=== PATIENT | male | born 1970 | race American Indian/Alaskan Native ===

== ENCOUNTER 2016-10-17 13:58 | Emergency (ER) | payer SELFPAY ==
--- NOTE | 2016-10-17 15:35 | Emergency Department Report ---
ED General Adult HPI - General Chief complaint: High BP Stated complaint: ELEVATED B/P Time Seen by Provider: 10/17/16 15:29 Source: patient Mode of arrival: Ambulatory Limitations: No Limitations - History of Present Illness Initial comments: PT states he ran out of his bp medication 3 days ago. PT has a list of home medication. PT is on amlodiine 5 mg, lisinopil/ hctz 20- 25 mg, and metoprolol 25 mg once a day PT has DOT physical tomorrow MD Complaint: medication refill -: Gradual Severity scale (0 -10): 0 Improves with: medication Associated Symptoms: denies: confusion, chest pain, loss of appetite, nausea/ vomiting, shortness of breath, syncope - Related Data Previous Rx's Medication Instructions Recorded Last Taken Type Lisinopril/Hydrochlorothiazide 1 tab PO QDAY #30 tab 10/17/16 Unknown Rx [Zestoretic 20-25 mg] Metoprolol [Lopressor TAB] 25 mg PO DAILY #30 tablet 10/17/16 Unknown Rx amLODIPine [Norvasc] 5 mg PO QHS #30 tab 10/17/16 Unknown Rx Allergies Allergy/AdvReac Type Severity Reaction Status Date / Time No Known Allergies Allergy Verified 08/12/14 11:24 ED Review of Systems ROS: Stated complaint: ELEVATED B/P Other details as noted in HPI Comment: All other systems reviewed and negative Constitutional: denies: fever Cardiovascular: denies: chest pain, palpitations, edema, syncope Gastrointestinal: denies: abdominal pain Neurological: denies: headache, abnormal gait ED Past Medical Hx - Past Medical History Hx Hypertension: Yes - Surgical History Past Surgical History?: No - Social History Smoking Status: Current Some Day Smoker Substance Use Type: None - Medications Home Medications: Home Medications Medication Instructions Recorded Confirmed Last Taken Type Lisinopril/Hydrochlorothiazide 1 tab PO QDAY #30 tab 10/17/16 Unknown Rx [Zestoretic 20-25 mg] Metoprolol [Lopressor TAB] 25 mg PO DAILY #30 tablet 10/17/16 Unknown Rx amLODIPine [Norvasc] 5 mg PO QHS #30 tab 10/17/16 Unknown Rx ED Physical Exam - General Limitations: No Limitations General appearance: alert, in no apparent distress - Head Head exam: Present: atraumatic, normocephalic, normal inspection - Eye Eye exam: Present: normal appearance. Absent: conjunctival injection - ENT ENT exam: Present: normal exam, normal external ear exam - Neck Neck exam: Present: normal inspection, full ROM - Respiratory Respiratory exam: Present: normal lung sounds bilaterally. Absent: respiratory distress - Cardiovascular Cardiovascular Exam: Present: regular rate, normal rhythm, normal heart sounds - GI/Abdominal GI/Abdominal exam: Present: soft. Absent: tenderness - Extremities Exam Extremities exam: Present: normal inspection - Back Exam Back exam: Present: normal inspection, full ROM ED Course Vital Signs 10/17/16 10/17/16 14:21 16:10 Temperature 98.6 F 98.6 F Pulse Rate 65 65 Respiratory 18 17 Rate Blood Pressure 150/109 142/96 [Right] O2 Sat by Pulse 97 98 Oximetry - Reevaluation(s) Reevaluation #1: 10/17/16 15:44 PT aware his bp medication will be prescribed. 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 ED Disposition Clinical Impression: Hypertension Qualifiers: Hypertension type: essential hypertension Qualified Code(s): I10 - Essential ( primary) hypertension Disposition: TO HOME OR SELFCARE Is pt being admited?: No Does the pt Need Aspirin: No Condition: Stable Instructions: Hypertension (ED) Additional Instructions: take your bp medication as prescribed follow up with PCP in 3-5 days for bp recheck Return to the ed for concerns Prescriptions: amLODIPine [Norvasc] 5 mg PO QHS #30 tab Lisinopril/Hydrochlorothiazide [Zestoretic 20-25 mg] 1 tab PO QDAY #30 tab Metoprolol [Lopressor TAB] 25 mg PO DAILY #30 tablet Referrals: [facility] [Outside] - 3-5 Days [facility] [Outside] - 3-5 Days LEANRDA BURRELL MD [Staff Physician] - 3-5 Days Forms: Work/School Release Form(ED) Time of Disposition: 15:47
[2016-10-17 16:20] VITALS: BP 142/96
== END 2016-10-17 16:10 | disposition home or self-care (01) ==
LOC: ED 13:58
DX: I10 Essential (primary) hypertension (principal); F17.210 Nicotine dependence, cigarettes, uncomplicated
CPT/HCPCS: 99282

== ENCOUNTER 2017-05-15 09:38 | Emergency (ER) | payer OTHER ==
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
[2017-05-15 17:51] VITALS: BP 132/87
== END 2017-05-15 17:51 | disposition home or self-care (01) ==
LOC: ED 09:38
DX: M54.5 Low back pain (principal); I10 Essential (primary) hypertension; F17.200 Nicotine dependence, unspecified, uncomplicated; F12.10 Cannabis abuse, uncomplicated
CPT/HCPCS: 99282

== ENCOUNTER 2017-10-31 14:45 | Emergency (ER) | payer SELFPAY ==
[2017-10-31] MEDS ORDERED: CATAPRES ONE (14:50)
[2017-10-31] MEDS ORDERED: CATAPRES PO ONE (14:58)
--- NOTE | 2017-10-31 18:08 | Emergency Department Report ---
ED Recheck HPI - General Chief Complaint: Medical Clearance Stated Complaint: HBP Time Seen by Provider: 10/31/17 17:19 Source: patient Mode of arrival: Ambulatory Limitations: No Limitations - History of Present Illness Initial Comments: This is a 46-year-old male nontoxic, well nourished in appearance, no acute signs of distress presents to the ED medication refill. Patient stated that he takes Lopressor 25 mg, amlodipine 5 mg and Zestoretic 25mg daily and baby aspirin but has not been taken for past week. Patient denies falling up with a primary care doctor. Patient is asymptomatic. He denies any chest pain, shortness of breath, headache, stiff neck, numbness, tingling, blurry vision, neck pain, bowel pain. Patient denies any drug allergies. Past medical history includes hypertension. MD Complaint: medication refill request Symptoms Since Prior Visit: no new symptoms Associated Symptoms: none. denies: fever, chills, chest pain, shortness of breath, rash, malaise, nasuea, abdominal pain - Related Data Previous Rx's Medication Instructions Recorded Last Taken Type Lisinopril/Hydrochlorothiazide 1 tab PO QDAY #30 tab 10/17/16 Unknown Rx [Zestoretic 20-25 mg] Metoprolol [Lopressor TAB] 25 mg PO DAILY #30 tablet 10/17/16 Unknown Rx amLODIPine [Norvasc] 5 mg PO QHS #30 tab 10/17/16 Unknown Rx Cyclobenzaprine [Flexeril] 10 mg PO TID PRN #15 tablet 05/15/17 Unknown Rx Ibuprofen [Motrin] 600 mg PO Q8H PRN #15 tablet 05/15/17 Unknown Rx Aspirin [Aspirin BABY CHEW TAB] 81 mg PO QDAY #30 tab.chew 10/31/17 Unknown Rx Lisinopril/Hydrochlorothiazide 1 tab PO QDAY #30 tab 10/31/17 Unknown Rx [Zestoretic 20-25 mg] Metoprolol [Lopressor] 25 mg PO DAILY #30 tablet 10/31/17 Unknown Rx amLODIPine [Norvasc] 5 mg PO QHS #30 tab 10/31/17 Unknown Rx Allergies Allergy/AdvReac Type Severity Reaction Status Date / Time No Known Allergies Allergy Verified 08/12/14 11:24 ED Review of Systems ROS: Stated complaint: HBP Other details as noted in HPI Constitutional: denies: chills, fever Eyes: denies: eye pain, eye discharge, vision change ENT: denies: ear pain, throat pain Respiratory: denies: cough, shortness of breath, wheezing Cardiovascular: denies: chest pain, palpitations Endocrine: no symptoms reported Gastrointestinal: denies: abdominal pain, nausea, diarrhea Genitourinary: denies: urgency, dysuria Musculoskeletal: denies: back pain, joint swelling, arthralgia Skin: denies: rash, lesions Neurological: denies: headache, weakness, paresthesias Psychiatric: denies: anxiety, depression Hematological/Lymphatic: denies: easy bleeding, easy bruising ED Past Medical Hx - Past Medical History Previous Medical History?: Yes Hx Hypertension: Yes - Surgical History Past Surgical History?: No - Social History Smoking Status: Never Smoker - Medications Home Medications: Home Medications Medication Instructions Recorded Confirmed Last Taken Type Lisinopril/Hydrochlorothiazide 1 tab PO QDAY #30 tab 10/17/16 Unknown Rx [Zestoretic 20-25 mg] Metoprolol [Lopressor TAB] 25 mg PO DAILY #30 tablet 10/17/16 Unknown Rx amLODIPine [Norvasc] 5 mg PO QHS #30 tab 10/17/16 Unknown Rx Cyclobenzaprine [Flexeril] 10 mg PO TID PRN #15 tablet 05/15/17 Unknown Rx Ibuprofen [Motrin] 600 mg PO Q8H PRN #15 tablet 05/15/17 Unknown Rx Aspirin [Aspirin BABY CHEW TAB] 81 mg PO QDAY #30 tab.chew 10/31/17 Unknown Rx Lisinopril/Hydrochlorothiazide 1 tab PO QDAY #30 tab 10/31/17 Unknown Rx [Zestoretic 20-25 mg] Metoprolol [Lopressor] 25 mg PO DAILY #30 tablet 10/31/17 Unknown Rx amLODIPine [Norvasc] 5 mg PO QHS #30 tab 10/31/17 Unknown Rx ED Physical Exam - General Limitations: No Limitations General appearance: alert, in no apparent distress - Head Head exam: Present: atraumatic, normocephalic - Eye Eye exam: Present: normal appearance - ENT ENT exam: Present: mucous membranes moist - Neck Neck exam: Present: normal inspection - Respiratory Respiratory exam: Present: normal lung sounds bilaterally. Absent: respiratory distress - Cardiovascular Cardiovascular Exam: Present: regular rate, normal rhythm. Absent: systolic murmur, diastolic murmur, rubs, gallop - GI/Abdominal GI/Abdominal exam: Present: soft, normal bowel sounds - Rectal Rectal exam: Present: deferred - Extremities Exam Extremities exam: Present: normal inspection - Back Exam Back exam: Present: normal inspection - Neurological Exam Neurological exam: Present: alert, oriented X3 - Psychiatric Psychiatric exam: Present: normal affect, normal mood - Skin Skin exam: Present: warm, dry, intact, normal color. Absent: rash ED Course Vital Signs 10/31/17 10/31/17 14:45 16:24 Temperature 98 F Pulse Rate 95 H Respiratory 16 Rate Blood Pressure 200/122 Blood Pressure 159/111 [Left] O2 Sat by Pulse 98 Oximetry - Reevaluation(s) Reevaluation #1: 10/31/17 18:13 Patient is speaking in full sentences with no signs of distress noted. ED Recheck MDM - Medical Decision Making 46-year-old male that presents with hypertension and medication refill. Patient is stable and was examined by me. Prior to my review patient received Catapres 0.2 mg which has decreased patient's blood pressure. Patient will be refill his medications listed on his phone (Norvasc 5mg, Lopressor 25mg, and Zestoretic 20-25mg daily) and aspirin 81 mg. Patient is asymptomatic. Patient was referred to Follow-up with a primary care doctor in 3-5 days or if symptoms worsen and continue return to emergency room as soon as possible. At time of discharge, the patient does not seem toxic or ill in appearance. No acute signs of distress noted. Patient agrees to discharge treatment plan of care. No further questions noted by the patient. Critical care attestation.: If time is entered above; I have spent that time in minutes in the direct care of this critically ill patient, excluding procedure time. ED Disposition Clinical Impression: Medication refill Hypertension Qualifiers: Hypertension type: unspecified Qualified Code(s): I10 - Essential (primary) hypertension Disposition: - TO HOME OR SELFCARE Is pt being admited?: No Does the pt Need Aspirin: No Condition: Stable Instructions: Hypertension (ED) Additional Instructions: Follow-up with a primary care doctor in 3-5 days or if symptoms worsen and continue return to emergency room as soon as possible. Keep a daily diary of her blood pressure and presented to primary care doctor. Prescriptions: amLODIPine [Norvasc] 5 mg PO QHS #30 tab Aspirin [Aspirin BABY CHEW TAB] 81 mg PO QDAY #30 tab.chew Lisinopril/Hydrochlorothiazide [Zestoretic 20-25 mg] 1 tab PO QDAY #30 tab Metoprolol [Lopressor] 25 mg PO DAILY #30 tablet Referrals: PRIMARY CAREMD [Primary Care Provider] - 3-5 Days WALESKA NAVA MD [Staff Physician] - 3-5 Days [facility] [Outside] - 3-5 Days [facility] [Outside] - 3-5 Days Forms: Work/School Release Form(ED)
[2017-10-31 18:51] VITALS: BP 158/102
== END 2017-10-31 18:50 | disposition home or self-care (01) ==
LOC: ED 14:45
DX: I10 Essential (primary) hypertension (principal); Z76.0 Encounter for issue of repeat prescription
CPT/HCPCS: 99282

== ENCOUNTER 2017-12-13 13:42 | Emergency (ER) | payer SELFPAY ==
[2017-12-13] MEDS ORDERED: LOPRESSOR ONE (13:58)
[2017-12-13] MEDS ORDERED: NORVASC ONE (13:58)
[2017-12-13] MEDS ORDERED: NORVASC PO ONE (14:00)
[2017-12-13] MEDS ORDERED: LOPRESSOR PO ONE (14:01)
--- NOTE | 2017-12-13 15:03 | Emergency Department Report ---
ED General Adult HPI - General Chief complaint: High BP Stated complaint: HYPERTENSION Time Seen by Provider: 12/13/17 14:53 Source: patient Mode of arrival: Ambulatory Limitations: No Limitations - History of Present Illness Initial comments: Patient is 47 years old male with history of hypertension on Norvasc 5 mg and Lopressor 25 mg. Patient stated that he is out of his medication presented to the ER with a blood pressure of 171/114. Patient denied any chest pain, shortness of breath, weakness, numbness, tingling sensation, nausea or vomiting. - Related Data Previous Rx's Medication Instructions Recorded Last Taken Type Lisinopril/Hydrochlorothiazide 1 tab PO QDAY #30 tab 10/17/16 Unknown Rx [Zestoretic 20-25 mg] Metoprolol [Lopressor TAB] 25 mg PO DAILY #30 tablet 10/17/16 Unknown Rx amLODIPine [Norvasc] 5 mg PO QHS #30 tab 10/17/16 Unknown Rx Cyclobenzaprine [Flexeril] 10 mg PO TID PRN #15 tablet 05/15/17 Unknown Rx Ibuprofen [Motrin] 600 mg PO Q8H PRN #15 tablet 05/15/17 Unknown Rx Aspirin [Aspirin BABY CHEW TAB] 81 mg PO QDAY #30 tab.chew 10/31/17 Unknown Rx Lisinopril/Hydrochlorothiazide 1 tab PO QDAY #30 tab 10/31/17 Unknown Rx [Zestoretic 20-25 mg] Metoprolol [Lopressor] 25 mg PO DAILY #30 tablet 10/31/17 Unknown Rx amLODIPine [Norvasc] 5 mg PO QHS #30 tab 10/31/17 Unknown Rx Allergies Allergy/AdvReac Type Severity Reaction Status Date / Time No Known Allergies Allergy Verified 08/12/14 11:24 ED Review of Systems ROS: Stated complaint: HYPERTENSION Other details as noted in HPI Comment: All other systems reviewed and negative Constitutional: denies: chills, fever Respiratory: denies: shortness of breath Cardiovascular: denies: chest pain Gastrointestinal: denies: abdominal pain, nausea, vomiting Musculoskeletal: denies: back pain Neurological: denies: headache, weakness, numbness, paresthesias, confusion, abnormal gait ED Past Medical Hx - Past Medical History Previous Medical History?: Yes Hx Hypertension: Yes - Surgical History Past Surgical History?: No - Social History Smoking Status: Current Every Day Smoker Substance Use Type: None - Medications Home Medications: Home Medications Medication Instructions Recorded Confirmed Last Taken Type Lisinopril/Hydrochlorothiazide 1 tab PO QDAY #30 tab 10/17/16 Unknown Rx [Zestoretic 20-25 mg] Metoprolol [Lopressor TAB] 25 mg PO DAILY #30 tablet 10/17/16 Unknown Rx amLODIPine [Norvasc] 5 mg PO QHS #30 tab 10/17/16 Unknown Rx Cyclobenzaprine [Flexeril] 10 mg PO TID PRN #15 tablet 05/15/17 Unknown Rx Ibuprofen [Motrin] 600 mg PO Q8H PRN #15 tablet 05/15/17 Unknown Rx Aspirin [Aspirin BABY CHEW TAB] 81 mg PO QDAY #30 tab.chew 10/31/17 Unknown Rx Lisinopril/Hydrochlorothiazide 1 tab PO QDAY #30 tab 10/31/17 Unknown Rx [Zestoretic 20-25 mg] Metoprolol [Lopressor] 25 mg PO DAILY #30 tablet 10/31/17 Unknown Rx amLODIPine [Norvasc] 5 mg PO QHS #30 tab 10/31/17 Unknown Rx ED Physical Exam - General Limitations: No Limitations General appearance: alert, in no apparent distress - Head Head exam: Present: atraumatic, normocephalic, normal inspection - ENT ENT exam: Present: normal exam, normal orophraynx, mucous membranes moist - Neck Neck exam: Present: normal inspection, full ROM. Absent: tenderness, meningismus, lymphadenopathy, thyromegaly - Respiratory Respiratory exam: Present: normal lung sounds bilaterally - Cardiovascular Cardiovascular Exam: Present: regular rate, normal rhythm, normal heart sounds - GI/Abdominal GI/Abdominal exam: Present: soft, normal bowel sounds. Absent: distended, tenderness, guarding, rebound, rigid - Extremities Exam Extremities exam: Present: normal inspection, full ROM, normal capillary refill. Absent: pedal edema, joint swelling, calf tenderness - Back Exam Back exam: Present: normal inspection, full ROM. Absent: tenderness, CVA tenderness (R), CVA tenderness (L), muscle spasm, paraspinal tenderness, vertebral tenderness - Neurological Exam Neurological exam: Present: alert, oriented X3, CN II-XII intact, normal gait, reflexes normal - Skin Skin exam: Present: warm, intact, normal color ED Course Vital Signs 12/13/17 12/13/17 12/13/17 13:49 14:01 14:02 Temperature 97.6 F Pulse Rate 96 H 96 H 96 H Respiratory 18 Rate Blood Pressure 171/114 171/114 171/114 O2 Sat by Pulse 97 Oximetry - Reevaluation(s) Reevaluation #1: 12/13/17 15:03 Patient refused laboratory work and urine test. Critical care attestation.: If time is entered above; I have spent that time in minutes in the direct care of this critically ill patient, excluding procedure time. ED Disposition Clinical Impression: Malignant hypertension Disposition: DC-01 TO HOME OR SELFCARE Is pt being admited?: No Condition: Stable Instructions: Hypertension (ED) Referrals: PRIMARY CARE, [Primary Care Provider] - 3-5 Days
[2017-12-13 15:15] VITALS: BP 156/112
== END 2017-12-13 15:14 | disposition home or self-care (01) ==
LOC: ED 13:42
DX: I10 Essential (primary) hypertension (principal); F17.200 Nicotine dependence, unspecified, uncomplicated
CPT/HCPCS: 99282

== ENCOUNTER 2017-12-17 19:45 | Emergency (ER) | payer OTHER ==
[2017-12-17 19:56] VITALS: BP 169/99
[2017-12-17] MEDS ORDERED: MOTRIN PO ONE (19:56)
--- NOTE | 2017-12-17 20:55 | XRay Report ---
FINAL REPORT EXAM: XR SPINE LUMBOSACRAL 2-3V HISTORY: lower back pain TECHNIQUE: Frontal and lateral views lumbar spine and coned-down lateral view lumbosacral junction Comparison: None FINDINGS: Bony alignment is normal. The vertebral heights are maintained. There is slight loss of height of the L3-L4 disc with associated degenerative endplate change. There appears to be degenerative facet change in the lower lumbar spine with resulting foraminal stenosis. There is no evidence of fracture or subluxation. The paraspinous soft tissues are unremarkable. IMPRESSION: 1. Spondylitic change lumbar spine. If further imaging is required, MRI may be helpful. If there is a clinical concern for fracture, CT imaging would be helpful.
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
== END 2017-12-17 23:36 | disposition home or self-care (01) ==
LOC: ED 19:45
DX: S39.012A Strain of muscle, fascia and tendon of lower back, initial encounter (principal); I10 Essential (primary) hypertension; F17.200 Nicotine dependence, unspecified, uncomplicated; Z79.82 Long term (current) use of aspirin; V87.7XXA Person injured in collision between other specified motor vehicles (traffic), initial encounter; Y93.89 Activity, other specified; Y92.89 Other specified places as the place of occurrence of the external cause; Y99.8 Other external cause status
CPT/HCPCS: 72100

== ENCOUNTER 2018-04-30 21:15 | Emergency (ER) | payer OTHER | END 2018-04-30 23:48 | disposition home or self-care (01) | LOC: ED 21:15 ==

== ENCOUNTER 2018-06-03 00:30 | Inpatient (IN) | payer OTHER ==
[2018-06-03 01:08] LABS: Basophils % (Auto) 0.6 % (0.0-1.8); Eosinophils # (Auto) 0.3 K/mm3 (0.0-0.4); Eosinophils % (Auto) 3.6 % (0.0-4.3); Hematocrit 42.5 % (35.5-45.6); Hemoglobin 14.7 gm/dl (11.8-15.2); Lymphocytes # (Auto) 2.9 K/mm3 (1.2-5.4); Lymphocytes % (Auto) 37.9 % (13.4-35.0); Mean Corpuscular HGB Conc 35 % (32-34); Mean Corpuscular Volume 92 fl (84-94); Monocytes # (Auto) 0.7 K/mm3 (0.0-0.8); Monocytes % (Auto) 9.5 % (0.0-7.3); Platelet Count 227 K/mm3 (140-440); Red Cell Distribution Width 13.1 % (13.2-15.2)
[2018-06-03 01:19] LABS: Bacteria,Urine 1+ /HPF (Negative); Bilirubin,Urine NEG (Negative); Blood,Urine LG (Negative); Color,Urine Red (Yellow)
[2018-06-03 01:20] LABS: RBC,Urine > 182.0 /HPF (0.0-6.0)
[2018-06-03 01:52] LABS: BUN/Creatinine Ratio 10; Blood Urea Nitrogen 14 mg/dL (9-20); Calcium 9.3 mg/dL (8.4-10.2); Hemolysis Index 17
[2018-06-03] MEDS ORDERED: K-DUR PO ONE ×2 (02:49→18:01)
[2018-06-03] MEDS ORDERED: CATAPRES PO ONE (02:50)
[2018-06-03] MEDS ORDERED: NACL 0.9% 1000 ML 1,000 ML IV ONE (02:50)
--- NOTE | 2018-06-03 02:55 | Emergency Department Report ---
ED Male HPI - General Chief complaint: Urogenital-Male Stated complaint: PENILE BLEEDING Time Seen by Provider: 06/03/18 02:23 Source: patient Mode of arrival: Ambulatory Limitations: No Limitations - History of Present Illness Initial comments: Patient said around 3 PM yesterday he suddenly started bleeding from his penis. He went to the bathroom and his urine was bloody. Wrist weak he had left flank pain on and off which has now resolved. Patient has no pain currently and has no other medical complaints currently. MD Complaint: other (Hematuria) -: Sudden Location: penis Radiation: none Severity: moderate Severity scale (0 -10): 4 Improves with: none Worsens with: none denies other symptoms - Related Data Sexually active: Yes Previous Rx's Medication Instructions Recorded Last Taken Type Lisinopril/Hydrochlorothiazide 1 tab PO QDAY #30 tab 10/17/16 Unknown Rx [Zestoretic 20-25 mg] Cyclobenzaprine [Flexeril] 10 mg PO TID PRN #15 tablet 05/15/17 Unknown Rx Aspirin [Aspirin BABY CHEW TAB] 81 mg PO QDAY #30 tab.chew 10/31/17 Unknown Rx Lisinopril/Hydrochlorothiazide 1 tab PO QDAY #30 tab 10/31/17 Unknown Rx [Zestoretic 20-25 mg] Metoprolol [Lopressor] 25 mg PO DAILY #30 tablet 10/31/17 Unknown Rx amLODIPine [Norvasc] 5 mg PO QHS #30 tab 10/31/17 Unknown Rx Metoprolol [Lopressor] 25 mg PO DAILY #30 tablet 12/13/17 Unknown Rx amLODIPine [Norvasc] 5 mg PO DAILY #30 tab 12/13/17 Unknown Rx Cyclobenzaprine [Flexeril] 10 mg PO BID PRN #20 tablet 12/17/17 Unknown Rx Menthol/Camphor [[place] 1 applicatio TP TID PRN #1 tube 12/17/17 Unknown Rx Ointment] Naproxen [Naprosyn] 500 mg PO BID PRN #30 tablet 12/17/17 Unknown Rx Metoprolol [Lopressor TAB] 25 mg PO DAILY #90 tablet 03/15/18 Unknown Rx amLODIPine [Norvasc] 5 mg PO QHS #90 tab 03/15/18 Unknown Rx Ibuprofen [Motrin 600 MG tab] 600 mg PO Q8H PRN #15 tablet 04/30/18 Unknown Rx Allergies Allergy/AdvReac Type Severity Reaction Status Date / Time No Known Allergies Allergy Verified 03/15/18 12:38 ED Review of Systems ROS: Stated complaint: PENILE BLEEDING Other details as noted in HPI Comment: All other systems reviewed and negative Constitutional: denies: chills, fever Eyes: denies: eye pain, eye discharge, vision change ENT: denies: ear pain, throat pain Respiratory: denies: cough, shortness of breath, wheezing Cardiovascular: denies: chest pain, palpitations Endocrine: no symptoms reported Gastrointestinal: denies: abdominal pain, nausea, diarrhea Genitourinary: hematuria. denies: urgency, dysuria Musculoskeletal: denies: back pain, joint swelling, arthralgia Skin: denies: rash, lesions Neurological: denies: headache, weakness, paresthesias Psychiatric: denies: anxiety, depression Hematological/Lymphatic: denies: easy bleeding, easy bruising ED Past Medical Hx - Past Medical History Hx Hypertension: Yes Additional medical history: Obesity, Chronic Back Pain - Surgical History Past Surgical History?: No - Social History Smoking Status: Current Every Day Smoker Substance Use Type: None - Medications Home Medications: Home Medications Medication Instructions Recorded Confirmed Last Taken Type Lisinopril/Hydrochlorothiazide 1 tab PO QDAY #30 tab 10/17/16 Unknown Rx [Zestoretic 20-25 mg] Cyclobenzaprine [Flexeril] 10 mg PO TID PRN #15 tablet 05/15/17 Unknown Rx Aspirin [Aspirin BABY CHEW TAB] 81 mg PO QDAY #30 tab.chew 10/31/17 Unknown Rx Lisinopril/Hydrochlorothiazide 1 tab PO QDAY #30 tab 10/31/17 Unknown Rx [Zestoretic 20-25 mg] Metoprolol [Lopressor] 25 mg PO DAILY #30 tablet 10/31/17 Unknown Rx amLODIPine [Norvasc] 5 mg PO QHS #30 tab 10/31/17 Unknown Rx Metoprolol [Lopressor] 25 mg PO DAILY #30 tablet 12/13/17 Unknown Rx amLODIPine [Norvasc] 5 mg PO DAILY #30 tab 12/13/17 Unknown Rx Cyclobenzaprine [Flexeril] 10 mg PO BID PRN #20 tablet 12/17/17 Unknown Rx Menthol/Camphor [[place] 1 applicatio TP TID PRN #1 tube 12/17/17 Unknown Rx Ointment] Naproxen [Naprosyn] 500 mg PO BID PRN #30 tablet 12/17/17 Unknown Rx Metoprolol [Lopressor TAB] 25 mg PO DAILY #90 tablet 03/15/18 Unknown Rx amLODIPine [Norvasc] 5 mg PO QHS #90 tab 03/15/18 Unknown Rx Ibuprofen [Motrin 600 MG tab] 600 mg PO Q8H PRN #15 tablet 04/30/18 Unknown Rx ED Physical Exam - General Limitations: No Limitations General appearance: alert, in no apparent distress - Head Head exam: Present: atraumatic, normocephalic - Eye Eye exam: Present: normal appearance, PERRL - ENT ENT exam: Present: normal exam, mucous membranes moist - Neck Neck exam: Present: normal inspection, full ROM - Respiratory Respiratory exam: Present: normal lung sounds bilaterally. Absent: respiratory distress - Cardiovascular Cardiovascular Exam: Present: regular rate, normal rhythm, normal heart sounds. Absent: systolic murmur, diastolic murmur, rubs, gallop - GI/Abdominal GI/Abdominal exam: Present: soft, normal bowel sounds. Absent: distended, tenderness - Rectal Rectal exam: Present: deferred - External exam: Present: other (Deferred) - Extremities Exam Extremities exam: Present: normal inspection, full ROM, normal capillary refill. Absent: tenderness - Back Exam Back exam: Present: normal inspection - Neurological Exam Neurological exam: Present: alert, oriented X3, CN II-XII intact - Psychiatric Psychiatric exam: Present: normal affect, normal mood - Skin Skin exam: Present: warm, dry, intact, normal color. Absent: rash ED Course Vital Signs 06/03/18 06/03/18 06/03/18 00:36 03:14 03:17 Temperature 98.3 F Pulse Rate 74 62 62 Respiratory 16 16 Rate Blood Pressure 177/100 168/116 Blood Pressure 168/116 [Left] O2 Sat by Pulse 100 96 Oximetry - Consultations Consultation #1: 06/03/18 06:20 I consult the Urologist Dr. Perez. He will evaluate the patient in the hospital today. Consultation #2: 06/03/18 06:21 Dr. Laverne Ortega to admit the patient for further evaluation and management. ED Medical Decision Making - Lab Data Result diagrams: 06/03/18 00:45 06/03/18 01:16 Lab Results 06/03/18 06/03/18 06/03/18 Range/Units 00:45 00:55 01:16 WBC 7.7 (4.5-11.0) K/mm3 RBC 4.60 (3.65-5.03) M/mm3 Hgb 14.7 (11.8-15.2) gm/dl Hct 42.5 (35.5-45.6) % MCV 92 (84-94) fl MCH 32 (28-32) pg MCHC 35 H (32-34) % RDW 13.1 L (13.2-15.2) % Plt Count 227 (140-440) K/mm3 Lymph % (Auto) 37.9 H (13.4-35.0) % [place] % (Auto) 9.5 H (0.0-7.3) % Eos % (Auto) 3.6 (0.0-4.3) % Baso % (Auto) 0.6 (0.0-1.8) % Lymph # 2.9 (1.2-5.4) K/mm3 [place] # 0.7 (0.0-0.8) K/mm3 Eos # 0.3 (0.0-0.4) K/mm3 Baso # 0.0 (0.0-0.1) K/mm3 Seg Neutrophils % 48.4 (40.0-70.0) % Seg Neutrophils # 3.7 (1.8-7.7) K/mm3 Sodium 143 (137-145) mmol/L Potassium 2.9 L* (3.6-5.0) mmol/L Chloride 103.5 (98-107) mmol/L Carbon Dioxide 26 (22-30) mmol/L Anion Gap 16 mmol/L BUN 14 (9-20) mg/dL Creatinine 1.4 (0.8-1.5) mg/dL Estimated GFR > 60 ml/min BUN/Creatinine Ratio 10 % Glucose 138 H (75-100) mg/dL Calcium 9.3 (8.4-10.2) mg/dL Urine Color Red (Yellow) Urine Turbidity Slightly-cloudy (Clear) Urine pH 6.0 (5.0-7.0) Ur Specific [place] 1.025 (1.003-1.030) Urine Protein 100 mg/dl (Negative) mg/dL Urine Glucose (UA) Neg (Negative) mg/dL Urine Ketones Tr (Negative) mg/dL Urine Blood Lg (Negative) Urine Nitrite Neg (Negative) Urine Bilirubin Neg (Negative) Urine Urobilinogen 2.0 (<2.0) mg/dL Ur Leukocyte Esterase Sm (Negative) Urine WBC (Auto) 6.0 (0.0-6.0) /HPF Urine RBC (Auto) > 182.0 (0.0-6.0) /HPF Urine Bacteria (Auto) 1+ (Negative) /HPF - Radiology Data Radiology results: report reviewed, image reviewed - Medical Decision Making Gross hematuria. Penile bleeding. Hypertensive urgency. Hypokalemia. Critical Care Time: Yes Critical care time in (mins) excluding proc time.: 45 Critical care attestation.: If time is entered above; I have spent that time in minutes in the direct care of this critically ill patient, excluding procedure time. ED Disposition Clinical Impression: Gross hematuria, Acute hypokalemia, Penile bleeding, Hypertensive urgency, Uncontrolled hypertension Disposition: OP ADMIT IP TO THIS HOSP Is pt being admited?: Yes Does the pt Need Aspirin: No Condition: Stable Instructions: Hypertension (ED) Time of Disposition: 06:23
[2018-06-03] MEDS: KCL 10MEQ/100ML 10 MEQ/100 ML BAG IV SCH ×2 (03:14→04:38)
--- NOTE | 2018-06-03 03:59 | Cat Scan Report ---
FINAL REPORT PROCEDURE: CT ABDOMEN PELVIS WO/W CON TECHNIQUE: Computerized axial tomography of the abdomen and pelvis was performed without contrast fo llowed by computerized axial tomography of the abdomen and pelvis after the IV injection of iodinated nonionic contrast. HISTORY: Hematuria. COMPARISON: No prior studies are available for comparison. FINDINGS: Visualized lower thorax: No significant abnormality. Liver: The liver is fatty infiltrated. Spleen: Normal size and attenuation. Gallbladder and biliary system: There are stones identified within the gallbladder lumen. No dilatati on of the biliary ductal system. Pancreas: Normal. Adrenals: Normal. Kidneys: Normal. GI tract: No obstruction. The cecum, appendix and colon are normal.. Lymph nodes and mesentery: Normal. Vasculature: Normal. Bladder: Normal. Reproductive Organs: Normal. Peritoneum: No free fluid. Musculoskeletal structures: No significant abnormality. Other: None . IMPRESSION: Impression There is no evidence of an acute process in the abdomen or pelvis. Cholelithiasis. No dilatation of the biliary ductal system.
[2018-06-03] MEDS ORDERED: CARDENE 50 MG in NACL 0.9% 250ML 230 ML IV SCH (06:00)
--- NOTE | 2018-06-03 07:27 | History and Physical Report ---
History of Present Illness Date of examination: 06/03/18 Date of admission: 06/03/18 Chief complaint: Gross hematuria since yesterday History of present illness: 47-year-old obese -[place] male patient with significant past medical history of hypertension, presented to the emergency room with the hematuria from yesterday afternoon 3 PM, patient never had similar symptoms in the pasthistory of trauma No fever no urinary symptoms, Initial evaluation in emergency room was consistent with malignant hypertension, significantly improved with antihypertensive medications, Urology was consulted Past History Past Medical History: hypertension Past Surgical History: No surgical history Social history: smoking, alcohol abuse, other (cocaine) Family history: hypertension Medications and Allergies Allergies Allergy/AdvReac Type Severity Reaction Status Date / Time No Known Allergies Allergy Verified 03/15/18 12:38 Home Medications Medication Instructions Recorded Confirmed Last Taken Type Aspirin [Aspirin BABY CHEW TAB] 81 mg PO QDAY #30 tab.chew 10/31/17 06/03/18 06/02/18 08:00 Rx amLODIPine [Norvasc] 5 mg PO DAILY #30 tab 12/13/17 06/03/18 06/02/18 08:00 Rx Metoprolol [Lopressor TAB] 25 mg PO DAILY #90 tablet 03/15/18 06/03/18 06/02/18 08:00 Rx amLODIPine [Norvasc] 5 mg PO QHS #90 tab 03/15/18 06/03/18 06/02/18 08:00 Rx Active Meds: Active Medications Nicardipine HCl 50 mg/ Sodium (Chloride) 250 mls @ 25 mls/hr IV TITR ANNAMARIE; Protocol Review of Systems Constitutional: no weight loss, no weight gain, no fever, no chills Ears, nose, mouth and throat: no nasal congestion, no nasal discharge Cardiovascular: no chest pain, no palpitations, no shortness of breath Respiratory: no cough with sputum, no shortness of breath Gastrointestinal: no abdominal pain, no nausea, no vomiting Genitourinary Male: hematuria, no dysuria, no flank pain Musculoskeletal: no myalgias, no arthritis Integumentary: no rash, no lesions Neurological: no weakness, no numbness Psychiatric: no anxiety, no depression Endocrine: no cold intolerance, no heat intolerance, no polydipsia, no polyuria Hematologic/Lymphatic: no easy bruising, no easy bleeding Allergic/Immunologic: no urticaria, no allergic rhinitis Exam - Constitutional Vitals: Temp Pulse Resp BP Pulse Ox 98.3 F 66 16 133/84 94 06/03/18 00:36 06/03/18 07:12 06/03/18 07:12 06/03/18 07:12 06/03/18 07:12 General appearance: Present: no acute distress, well-nourished, obese - EENT Eyes: Present: PERRL, EOM intact - Neck Neck: Present: supple, normal ROM - Respiratory Respiratory effort: normal Respiratory: bilateral: diminished, negative: rales, rhonchi, wheezing - Cardiovascular Rhythm: regular Heart Sounds: Present: S1 & S2 - Extremities Extremities: no ischemia, No edema - Abdominal General gastrointestinal: Present: soft, non-tender, non-distended, normal bowel sounds - Integumentary Integumentary: Present: clear, warm - Musculoskeletal Musculoskeletal: strength equal bilaterally - Psychiatric Psychiatric: appropriate mood/affect, cooperative - Neurologic Neurologic: moves all extremities Results - Labs CBC & Chem 7: 06/03/18 00:45 06/03/18 01:16 Labs: Abnormal lab results 06/03/18 06/03/18 Range/Units 00:45 01:16 MCHC 35 H (32-34) % RDW 13.1 L (13.2-15.2) % Lymph % (Auto) 37.9 H (13.4-35.0) % [place] % (Auto) 9.5 H (0.0-7.3) % Potassium 2.9 L* (3.6-5.0) mmol/L Glucose 138 H (75-100) mg/dL Assessment and Plan --Gross hematuria; Hemodynamically stable, closely monitor input output, urology consult. --Hypokalemia; replacing the ER Closely monitor electrolytes --Malignant hypertension; mild improvement Patient's home antihypertensives --Substance abuse; tobacco alcohol and cocaine Smoking cessation consult, advised to quit alcohol and cocaine use Patient verbalized understanding --Obesity; BMI 37.1; Counseling, advised diet modification and exercise as tolerated and weight reduction When medically stable --DVT prophylaxis; SCDs, no pharmacological anticoagulation In view of hematuria Closely monitor the patient and adjust management as needed Follow-up urology consult and recommendations Plan of care is reviewed with the patient and his nurse
[2018-06-03] MEDS ORDERED: APRESOLINE IV PRN (08:00)
[2018-06-03] MEDS ORDERED: LOPRESSOR ONE (09:32)
[2018-06-03] MEDS ORDERED: NORVASC ONE (09:33)
[2018-06-03] MEDS ORDERED: HCTZ ONE (09:33)
[2018-06-03] MEDS ORDERED: NACL 0.9% 1000 ML 1,000 ML ONE (09:37)
[2018-06-03] MEDS: LOPRESSOR PO SCH (09:55)
[2018-06-03] MEDS: ROCEPHIN/NS 2 GM/100 ML 2 GM/100 ML BAG IV SCH (09:55)
[2018-06-03] MEDS: ZESTRIL PO SCH (09:55)
[2018-06-03] MEDS: NORVASC PO SCH (09:55)
[2018-06-03] MEDS: HCTZ PO SCH (09:55)
[2018-06-03] MEDS: NACL 0.9% 1000 ML 1,000 ML IV SCH (09:56)
[2018-06-03] MEDS ORDERED: ROCEPHIN/NS 1 GM/50 ML 1 GM/50 ML BAG IV SCH (10:00)
[2018-06-03] MEDS ORDERED: NON-FORMULARY (Lisinopril/Hydrochlorothiazide [Zestoretic 20-25 Mg] 1 TAB) PO SCH (10:00)
--- NOTE | 2018-06-03 10:03 | Consultation ---
History of Present Illness - Reason for Consult Consult date: 06/03/18 - History of Present Illness Patient said around 3 PM yesterday he suddenly started bleeding from his penis. He went to the bathroom and his urine was bloody. Wrist weak he had left flank pain on and off which has now resolved. Patient has no pain currently and has no other medical complaints currently. CTAP (06-03-18) NO ACTUE PROCESS + GALLSTONES absd soft A/P GROSS HEMATURIA METABOLIC ABNORMALITIES WILL NEED CYSTO INPUT OR OUTPT Medications and Allergies Allergies Allergy/AdvReac Type Severity Reaction Status Date / Time No Known Allergies Allergy Verified 03/15/18 12:38 Home Medications Medication Instructions Recorded Confirmed Last Taken Type Aspirin [Aspirin BABY CHEW TAB] 81 mg PO QDAY #30 tab.chew 10/31/17 06/03/18 06/02/18 08:00 Rx amLODIPine [Norvasc] 5 mg PO DAILY #30 tab 12/13/17 06/03/18 06/02/18 08:00 Rx Metoprolol [Lopressor TAB] 25 mg PO DAILY #90 tablet 03/15/18 06/03/18 06/02/18 08:00 Rx amLODIPine [Norvasc] 5 mg PO QHS #90 tab 03/15/18 06/03/18 06/02/18 08:00 Rx Active Meds: Active Medications Amlodipine Besylate (Norvasc) 5 mg PO DAILY [facility] Last Admin: 06/03/18 09:55 Dose: 5 mg Documented by: Hydralazine HCl (Apresoline) 10 mg IV Q4H PRN PRN Reason: Hypertension Hydrochlorothiazide (Hctz) 25 mg PO QDAY [facility] Last Admin: 06/03/18 09:55 Dose: 25 mg Documented by: Nicardipine HCl 50 mg/ Sodium (Chloride) 250 mls @ 25 mls/hr IV TITR ANNAMARIE; Prot ocol Sodium Chloride (Nacl 0.9% 1000 Ml) 1,000 mls @ 75 mls/hr IV DIRECT [facility] Last Admin: 06/03/18 09:56 Dose: 75 mls/hr Documented by: Ceftriaxone Sodium (Rocephin/Ns 2 Gm/100 Ml) 2 gm in 100 mls @ 200 mls/hr IV QDAY [facility] Last Admin: 06/03/18 09:55 Dose: 200 mls/hr Documented by: Lisinopril (Zestril) 20 mg PO QDAY [facility] Last Admin: 06/03/18 09:55 Dose: 20 mg Documented by: Metoprolol Tartrate (Lopressor) 25 mg PO DAILY [facility] Last Admin: 06/03/18 09:55 Dose: 25 mg Documented by: Exam - Constitutional Vitals: Temp Pulse Resp BP Pulse Ox 98.3 F 72 16 141/95 95 06/03/18 00:36 06/03/18 09:55 06/03/18 09:16 06/03/18 09:16 06/03/18 09:16 Results - Labs CBC & Chem 7: 06/03/18 00:45 06/03/18 01:16 Labs: Abnormal lab results 06/03/18 06/03/18 Range/Units 00:45 01:16 MCHC 35 H (32-34) % RDW 13.1 L (13.2-15.2) % Lymph % (Auto) 37.9 H (13.4-35.0) % Beltrami % (Auto) 9.5 H (0.0-7.3) % Potassium 2.9 L* (3.6-5.0) mmol/L Glucose 138 H (75-100) mg/dL
[2018-06-03 12:35] LABS: BUN/Creatinine Ratio 10; Blood Urea Nitrogen 11 mg/dL (9-20); Calcium 9.2 mg/dL (8.4-10.2); Hemolysis Index 7
[2018-06-04] MEDS: NACL 0.9% 1000 ML 1,000 ML IV SCH (03:13)
[2018-06-04 05:49] LABS: Basophils % (Auto) 0.7 % (0.0-1.8); Eosinophils # (Auto) 0.2 K/mm3 (0.0-0.4); Eosinophils % (Auto) 3.9 % (0.0-4.3); Hemoglobin 14.1 gm/dl (11.8-15.2); Lymphocytes # (Auto) 2.6 K/mm3 (1.2-5.4); Lymphocytes % (Auto) 45.2 % (13.4-35.0); Mean Corpuscular HGB Conc 35 % (32-34); Mean Corpuscular Volume 94 fl (84-94); Monocytes # (Auto) 0.4 K/mm3 (0.0-0.8); Monocytes % (Auto) 6.8 % (0.0-7.3); Platelet Count 200 K/mm3 (140-440); Red Blood Count 4.38 M/mm3 (3.65-5.03)
[2018-06-04 06:07] LABS: BUN/Creatinine Ratio 12; Blood Urea Nitrogen 13 mg/dL (9-20); Calcium 8.9 mg/dL (8.4-10.2); Hemolysis Index 14
[2018-06-04] MEDS: ZESTRIL PO SCH (09:42)
[2018-06-04] MEDS: ROCEPHIN/NS 2 GM/100 ML 2 GM/100 ML BAG IV SCH (09:42)
[2018-06-04] MEDS: HCTZ PO SCH (09:43)
[2018-06-04] MEDS: NORVASC PO SCH (09:43)
[2018-06-04] MEDS: LOPRESSOR PO SCH (09:43)
--- NOTE | 2018-06-04 11:14 | Progress Note ---
Subjective Date of service: 06/04/18 Objective - Constitutional Vitals: Vital Signs - 12hr 06/03/18 06/04/18 06/04/18 23:37 06:12 09:42 Temperature 97.7 F 98.0 F Pulse Rate 57 L 65 65 Respiratory 18 18 Rate Blood Pressure 147/95 147/96 145/96 O2 Sat by Pulse 93 99 Oximetry 06/04/18 09:43 Temperature Pulse Rate 65 Respiratory Rate Blood Pressure 147/96 O2 Sat by Pulse Oximetry - Labs CBC & Chem 7: 06/04/18 04:29 06/04/18 04:29 Labs: Abnormal lab results 06/03/18 06/04/18 06/04/18 Range/Units 12:08 04:29 04:29 MCHC 35 H (32-34) % RDW 13.0 L (13.2-15.2) % Lymph % (Auto) 45.2 H (13.4-35.0) % Potassium 3.5 L D 3.2 L (3.6-5.0) mmol/L Glucose 117 H (75-100) mg/dL Medications & Allergies - Medications Allergies/Adverse Reactions: Allergies No Known Allergies Allergy (Verified 03/15/18 12:38) Home Medications: Home Medications Medication Instructions Recorded Confirmed Last Taken Type Aspirin [Aspirin BABY CHEW TAB] 81 mg PO QDAY #30 tab.chew 10/31/17 06/03/18 06/02/18 08:00 Rx amLODIPine [Norvasc] 5 mg PO DAILY #30 tab 12/13/17 06/03/18 06/02/18 08:00 Rx Metoprolol [Lopressor TAB] 25 mg PO DAILY #90 tablet 03/15/18 06/03/18 06/02/18 08:00 Rx amLODIPine [Norvasc] 5 mg PO QHS #90 tab 03/15/18 06/03/18 06/02/18 08:00 Rx Active Medications: Generic Name Dose Route Start Last Admin Trade Name Freq PRN Reason Stop Dose Admin Amlodipine Besylate 5 mg 06/03/18 10:00 06/04/18 09:43 Norvasc PO 5 mg DAILY ANNAMARIE Administration Hydralazine HCl 10 mg 06/03/18 08:00 Apresoline IV Q4H PRN Hypertension Hydrochlorothiazide 25 mg 06/03/18 10:00 06/04/18 09:43 Hctz PO 25 mg QDAY ANNAMARIE Administration Nicardipine HCl 50 mg/ Sodium 250 mls @ 25 mls/hr 06/03/18 06:00 Chloride IV TITR ANNAMARIE Protocol 5 MG/HR Sodium Chloride 1,000 mls @ 75 mls/hr 06/03/18 08:00 06/04/18 03:13 Nacl 0.9% 1000 Ml IV 75 mls/hr DIRECT ANNAMARIE Administration Ceftriaxone Sodium 2 gm in 100 mls @ 200 mls/hr 06/03/18 10:00 06/04/18 09:42 Rocephin/Ns 2 Gm/100 Ml IV 200 mls/hr QDAY ANNAMARIE Administration Lisinopril 20 mg 06/03/18 10:00 06/04/18 09:42 Zestril PO 20 mg QDAY ANNAMARIE Administration Metoprolol Tartrate 25 mg 06/03/18 10:00 06/04/18 09:43 Lopressor PO 25 mg DAILY ANNAMARIE Administration
[2018-06-04 12:06] VITALS: BP 142/110
[2018-06-04] MEDS ORDERED: K-DUR PO ONE (14:33)
--- NOTE | 2018-06-04 14:38 | Discharge Summary ---
Providers - Providers Date of Admission: 06/03/18 07:38 Date of discharge: 06/04/18 Attending physician: KAIA NEVAREZ 06/03/18 06:01 Consult to Physician [CONS] Routine Comment: Dr. Golden spoke with Dr. Perez @ [phone] Consulting Provider: MARY PEREZ Physician Instructions: Reason For Exam: Penile bleeding Primary care physician: [facility], Hospitalization Reason for admission: Hematuria Condition: Stable Pertinent studies: CT abdomenand pelvis : no acute abnormality Hospital course: 47-year-old obese -Malagasy male patient with significant past medical history of hypertension, presented to the emergency room with the hematuria of 1 day duration, No fever no urinary symptoms, Initial evaluation in emergency room was consistent with malignant hypertension, significantly improved with antihypertensives . Evaluated by Urology,recommend further evaluation as out patient. patient's symptoms resolved,today pt is comfortable , no new complants,vital sgns noted. Cleared by urology,Stable at discharge Discharge Diagnosis: --Gross hematuria; urology evaluated,hematuria resolved outpatient f/u for further evaln --Hypokalemia; corrected --Malignant hypertension; improved with antihypertensives --Substance abuse; tobacco alcohol and cocaine Smoking cessation, advised to quit alcohol and cocaine use Patient verbalized understanding --Obesity; BMI 37.1; advised diet modification, exercise as tolerated and weight reduction When medically stable Disposition: DC-01 TO HOME OR SELFCARE Time spent for discharge: 31 min Core Measure Documentation - Palliative Care Palliative Care/ Comfort Measures: Not Applicable - Core Measures Any of the following diagnoses?: none Exam - Constitutional Vitals: Temp Pulse Resp BP Pulse Ox 97.9 F 65 20 142/110 99 06/04/18 12:05 06/04/18 09:43 06/04/18 12:05 06/04/18 12:05 06/04/18 06:12 General appearance: Present: no acute distress, well-nourished - EENT Eyes: Present: PERRL, EOM intact - Neck Neck: Present: supple, normal ROM - Respiratory Respiratory effort: normal Respiratory: bilateral: diminished, negative: rales, rhonchi, wheezing - Cardiovascular Rhythm: regular Heart Sounds: Present: S1 & S2 - Extremities Extremities: no ischemia, No edema - Abdominal General gastrointestinal: Present: soft, non-tender, non-distended, normal bowel sounds - Integumentary Integumentary: Present: clear, warm - Musculoskeletal Musculoskeletal: strength equal bilaterally, generalized weakness - Psychiatric Psychiatric: appropriate mood/affect, cooperative - Neurologic Neurologic: CNII-XII intact, moves all extremities Plan Activity: no restrictions Diet: regular Additional Instructions: Plenty oral fluids Follow up with: MATI GANTQUINTON MD MONIQUE [Primary Care Provider] - 3-5 Days MARY PEREZ MD [Staff Physician] - 7 Days Prescriptions: Aspirin [Aspirin BABY CHEW TAB] 81 mg PO QDAY #30 tab.chew hydroCHLOROthiazide [HCTZ] 25 mg PO QDAY #30 tablet levoFLOXacin [Levaquin TAB] 500 mg PO QDAY #7 tablet Lisinopril [Zestril TAB] 20 mg PO QDAY #30 tablet Metoprolol [Lopressor TAB] 25 mg PO DAILY #90 tablet
== END 2018-06-04 15:30 | disposition home or self-care (01) | DRG 696 ==
LOC: ED 00:30 → 3A 07:38
PROVIDERS: ADMIT Internal Medicine; ATTEND Internal Medicine
DX: R31.0 Gross hematuria (principal); E87.6 Hypokalemia; I16.0 Hypertensive urgency; N48.89 Other specified disorders of penis; E66.9 Obesity, unspecified; F10.10 Alcohol abuse, uncomplicated; F14.10 Cocaine abuse, uncomplicated; G89.29 Other chronic pain; K80.20 Calculus of gallbladder without cholecystitis without obstruction; Y90.9 Presence of alcohol in blood, level not specified; F17.200 Nicotine dependence, unspecified, uncomplicated; Z79.82 Long term (current) use of aspirin; Z79.899 Other long term (current) drug therapy; Z71.41 Alcohol abuse counseling and surveillance of alcoholic; Z71.6 Tobacco abuse counseling; Z71.51 Drug abuse counseling and surveillance of drug abuser; Z68.37 Body mass index [BMI] 37.0-37.9, adult; Z82.49 Family history of ischemic heart disease and other diseases of the circulatory system; Z71.3 Dietary counseling and surveillance
CPT/HCPCS: 36415; 74178; 80048; 81001; 85025; 96361; 96365; 96367; 96375; G0378; J0696; J3480; J7030; J7050; Q9967

== ENCOUNTER 2020-04-29 10:38 | Emergency (ER) | payer SELFPAY ==
[2020-04-29] MEDS: amLODIPine 5 MG TAB PO ONE (11:39)
[2020-04-29] MEDS: METOPROLOL TARTRATE 50 MG TAB PO ONE (11:39)
--- NOTE | 2020-04-29 12:00 | Emergency Department Report ---
ED General Adult HPI - General Chief complaint: High BP Stated complaint: BLOOD PRESSURE Source: patient Mode of arrival: Ambulatory Limitations: No Limitations - History of Present Illness Initial comments: Patient is a 49-year-old male presents emergency room for elevated blood pressure for the last 3 to 4 days. He states that he ran out of his blood pressure medication approximately 4 days ago. He states that he takes amlodipine 10 mg daily and metoprolol 50 mg daily. He states that he went for a visit with his primary care doctor last week but was advised that his insurance was no longer active and he was unable to see the primary care doctor. He states that it has been about a year since he has had a physical with basic blood work. He states that he has a mild headache and just knows that he is off his medication. He denies any significant headache. He denies any chest pain, shortness of breath, numbness, weakness, vision changes, vomiting, fever, chills , any other symptoms. He denies any other past medical history. No allergies to medications. Severity scale (0 -10): 0 - Related Data Previous Rx's Medication Instructions Recorded Last Taken Type amLODIPine 5 mg PO DAILY #30 tab 12/13/17 06/02/18 08:00 Rx amLODIPine 5 mg PO QHS #90 tab 03/15/18 06/02/18 08:00 Rx Aspirin [Aspirin BABY CHEW TAB] 81 mg PO QDAY #30 tab.chew 06/04/18 Unknown Rx Metoprolol [Lopressor TAB] 25 mg PO DAILY #90 tablet 06/04/18 Unknown Rx hydroCHLOROthiazide [HCTZ] 25 mg PO QDAY #30 tablet 06/04/18 Unknown Rx levoFLOXacin [Levaquin TAB] 500 mg PO QDAY #7 tablet 06/04/18 Unknown Rx lisinopriL [Zestril TAB] 20 mg PO QDAY #30 tablet 06/04/18 Unknown Rx Metoprolol [Lopressor TAB] 50 mg PO DAILY #30 tablet 04/29/20 Unknown Rx amLODIPine 10 mg PO DAILY #30 tab 04/29/20 Unknown Rx Allergies Allergy/AdvReac Type Severity Reaction Status Date / Time No Known Allergies Allergy Verified 04/29/20 10:39 ED Review of Systems ROS: Stated complaint: BLOOD PRESSURE Other details as noted in HPI Comment: All other systems reviewed and negative ED Past Medical Hx - Past Medical History Hx Hypertension: Yes Additional medical history: Obesity, Chronic Back Pain - Social History Smoking Status: Current Every Day Smoker - Medications Home Medications: Home Medications Medication Instructions Recorded Confirmed Last Taken Type amLODIPine 5 mg PO DAILY #30 tab 12/13/17 06/03/18 06/02/18 08:00 Rx amLODIPine 5 mg PO QHS #90 tab 03/15/18 06/03/18 06/02/18 08:00 Rx Aspirin [Aspirin BABY CHEW TAB] 81 mg PO QDAY #30 tab.chew 06/04/18 Unknown Rx Metoprolol [Lopressor TAB] 25 mg PO DAILY #90 tablet 06/04/18 Unknown Rx hydroCHLOROthiazide [HCTZ] 25 mg PO QDAY #30 tablet 06/04/18 Unknown Rx levoFLOXacin [Levaquin TAB] 500 mg PO QDAY #7 tablet 06/04/18 Unknown Rx lisinopriL [Zestril TAB] 20 mg PO QDAY #30 tablet 06/04/18 Unknown Rx Metoprolol [Lopressor TAB] 50 mg PO DAILY #30 tablet 04/29/20 Unknown Rx amLODIPine 10 mg PO DAILY #30 tab 04/29/20 Unknown Rx ED Physical Exam - General Limitations: No Limitations General appearance: alert, in no apparent distress - Head Head exam: Present: atraumatic, normocephalic - Eye Eye exam: Present: normal appearance - ENT ENT exam: Present: mucous membranes moist - Respiratory Respiratory exam: Present: normal lung sounds bilaterally. Absent: respiratory distress, wheezes, rales, rhonchi, stridor, chest wall tenderness, accessory muscle use, decreased breath sounds, prolonged expiratory - Cardiovascular Cardiovascular Exam: Present: regular rate, normal rhythm, normal heart sounds. Absent: systolic murmur, diastolic murmur, rubs, gallop - Neurological Exam Neurological exam: Present: alert, oriented X3, CN II-XII intact, normal gait. Absent: motor sensory deficit - Psychiatric Psychiatric exam: Present: normal affect, normal mood - Skin Skin exam: Present: warm, dry, intact ED Course Vital Signs 04/29/20 04/29/20 04/29/20 10:43 11:37 11:39 Temperature 97.7 F Pulse Rate 81 73 74 Respiratory 20 18 Rate Blood Pressure 184/139 179/127 Blood Pressure 179/127 [Left] O2 Sat by Pulse 100 98 Oximetry 04/29/20 04/29/20 11:40 12:57 Temperature Pulse Rate 59 L Respiratory 18 16 Rate Blood Pressure Blood Pressure 174/123 [Left] O2 Sat by Pulse 98 Oximetry ED Medical Decision Making - Lab Data Result diagrams: 04/29/20 12:07 04/29/20 12:07 Lab Results 04/29/20 04/29/20 Range/Units 12:07 12:07 WBC 5.9 (4.5-11.0) K/mm3 RBC 4.52 (3.65-5.03) M/mm3 Hgb 14.3 (11.8-15.2) gm/dl Hct 42.4 (35.5-45.6) % MCV 94 (84-94) fl MCH 32 (28-32) pg MCHC 34 (32-34) % RDW 13.3 (13.2-15.2) % Plt Count 196 (140-440) K/mm3 Lymph % (Auto) 29.4 (13.4-35.0) % Jerome % (Auto) 8.9 H (0.0-7.3) % Eos % (Auto) 4.9 H (0.0-4.3) % Baso % (Auto) 0.6 (0.0-1.8) % Lymph # (Auto) 1.7 (1.2-5.4) K/mm3 Jerome # (Auto) 0.5 (0.0-0.8) K/mm3 Eos # (Auto) 0.3 (0.0-0.4) K/mm3 Baso # (Auto) 0.0 (0.0-0.1) K/mm3 Seg Neutrophils % 56.2 (40.0-70.0) % Seg Neutrophils # 3.3 (1.8-7.7) K/mm3 Sodium 141 (137-145) mmol/L Potassium 3.6 (3.6-5.0) mmol/L Chloride 103.5 (98-107) mmol/L Carbon Dioxide 28 (22-30) mmol/L Anion Gap 13 mmol/L BUN 12 (9-20) mg/dL Creatinine 1.3 (0.8-1.3) mg/dL Estimated GFR > 60 ml/min BUN/Creatinine Ratio 9 % Glucose 118 H (75-100) mg/dL Calcium 9.2 (8.4-10.2) mg/dL - Medical Decision Making Patient is a 49-year-old male presents emergency room for elevated blood pressure for the last 3 to 4 days. He states that he ran out of his blood pressure medication approximately 4 days ago. He states that he takes amlodipine 10 mg daily and metoprolol 50 mg daily. He states that he went for a visit with his primary care doctor last week but was advised that his insurance was no longer active and he was unable to see the primary care doctor. He states that it has been about a year since he has had a physical with basic blood work. He states that he has a mild headache and just knows that he is off his medication. He denies any significant headache. He denies any chest pain, shortness of breath, numbness, weakness, vision changes, vomiting, fever, chills, any other symptoms. He denies any other past medical history. No allergies to medications. Vitals with elevated blood pressure, otherwise stable. No neurological deficits on exam. Labs are normal. Patient given his home medications and blood pressure slightly improved. he is currently asymptomatic. He has been off his medications for the last few days. Patient given refill of his home medications and discussed very strict return precautions. Discussed the importance of follow-up for close blood pressure monitoring and discussed lifestyle modifications. advised pt Please take medication as prescribed. Increase your water intake. Eat a low-sodium diet. Incorporate 30 to 60 minutes of daily exercise. Please keep a blood pressure log and take this to the primary care doctor. Please follow-up with your primary care doctor for close monitoring of your blood pressure. Return to emergency room immediately for any new or worsening symptoms. Critical care attestation.: If time is entered above; I have spent that time in minutes in the direct care of this critically ill patient, excluding procedure time. ED Disposition Clinical Impression: Hypertensive urgency Disposition: DC-01 TO HOME OR SELFCARE Is pt being admited?: No Does the pt Need Aspirin: No Condition: Stable Instructions: Hypertension, Adult, [id number], Managing Your Hypertension Additional Instructions: Please take medication as prescribed. Increase your water intake. Eat a low- sodium diet. Incorporate 30 to 60 minutes of daily exercise. Please keep a blood pressure log and take this to the primary care doctor. Please follow-up with your primary care doctor for close monitoring of your blood pressure. Return to emergency room immediately for any new or worsening symptoms. walk in clinic: [facility] Address: [address] [place] [address], [place] [address] Prescriptions: amLODIPine 10 mg PO DAILY #30 tab Metoprolol [Lopressor TAB] 50 mg PO DAILY #30 tablet Referrals: PAMELA GUTIERREZ MD [Staff Physician] - 3-5 Days [facility] [Provider Group] - 3-5 Days [facility], [LAB/CONTRACT] - 3-5 Days [facility] [Outside] - 3-5 Days PRIMARY CAREMD [Primary Care Provider] - 3-5 Days Time of Disposition: 13:04 Print Language: CROATIAN
[2020-04-29 12:35] LABS: Basophils % (Auto) 0.6 % (0.0-1.8); Eosinophils # (Auto) 0.3 K/mm3 (0.0-0.4); Eosinophils % (Auto) 4.9 % (0.0-4.3); Hematocrit 42.4 % (35.5-45.6); Hemoglobin 14.3 gm/dl (11.8-15.2); Lymphocytes # (Auto) 1.7 K/mm3 (1.2-5.4); Lymphocytes % (Auto) 29.4 % (13.4-35.0); Mean Corpuscular HGB Conc 34 % (32-34); Mean Corpuscular Volume 94 fl (84-94); Monocytes # (Auto) 0.5 K/mm3 (0.0-0.8); Monocytes % (Auto) 8.9 % (0.0-7.3); Platelet Count 196 K/mm3 (140-440); Red Blood Count 4.52 M/mm3 (3.65-5.03); Red Cell Distribution Width 13.3 % (13.2-15.2)
[2020-04-29 12:53] LABS: BUN/Creatinine Ratio 9; Blood Urea Nitrogen 12 mg/dL (9-20); Calcium 9.2 mg/dL (8.4-10.2); Hemolysis Index 7
[2020-04-29 12:57] VITALS: BP 174/123
== END 2020-04-29 13:17 | disposition home or self-care (01) ==
LOC: ED 10:38
DX: I16.0 Hypertensive urgency (principal); F17.200 Nicotine dependence, unspecified, uncomplicated; Z79.82 Long term (current) use of aspirin; Z79.899 Other long term (current) drug therapy
CPT/HCPCS: 36415; 80048; 85025; 99283

== ENCOUNTER 2020-06-17 23:54 | Emergency (ER) | payer SELFPAY ==
[2020-06-18] MEDS ORDERED: cloNIDine 0.2 MG TAB PO ONE (00:30)
[2020-06-18] MEDS ORDERED: cloNIDine 0.1 MG TAB PO ONE (00:30)
--- NOTE | 2020-06-18 00:32 | Event Note ---
ED Screening Note Date of service: 06/18/20 Time: 00:31 ED Screening Note: 49-year-old -Uk[place] male presents to the emergency room for elevated blood pressure with symptoms. Patient states is been off his medications for 3 days. Patient reports that he was scheduled for appointment tomorrow but his primary care office canceled. This initial assessment/diagnostic orders/clinical plan/treatment(s) is/are subject to change based on patients health status, clinical progression and re- assessment by fellow clinical providers in the ED. Further treatment and workup at subsequent clinical providers discretion. Patient/guardian urged not to elope from the ED as their condition may be serious if not clinically assessed and managed. Initial orders include: CBC, BMP. INT Spoke to Dr. Luu he recommends clonidine 0.3 mg
--- NOTE | 2020-06-18 01:19 | Emergency Department Report ---
ED General Adult HPI - General Chief complaint: High BP Stated complaint: BLOOD PRESSURE PUI?: No Time Seen by Provider: 06/18/20 01:16 Source: patient Mode of arrival: Ambulatory Limitations: No Limitations - History of Present Illness Initial comments: Patient is a 49-year-old male that presents emergency room with complaints of headache and elevated blood pressure. Patient states he ran out of blood pressure medications 3 days ago. Patient states he had appointment today with his primary care but his primary care canceled with him. Patient states that his headache is better since coming to the hospital. Patient states that it is better with rest. Patient states that his headache is completely resolved. Patient states it was a 10 out of 10. Patient states when his blood pressure gets better his headache goes away. Patient denies blurry vision. Patient denies neck stiffness. Patient denies syncope. Patient denies chest pain or shortness of breath. Patient denies fever and chills. Patient denies nausea vomiting. Patient states that he is normally on 10 mg Norvasc daily and 50 mg metoprolol XL daily. Patient denies recent travel. Patient denies recent international travel. Patient denies exposure to the novel coronavirus. Patient denies sick contacts. Patient denies fever and chills. Patient denies cough. Patient denies diarrhea. Patient denies coming in contact with anybody with symptoms of the novel coronavirus. -: Sudden Location: head Severity scale (0 -10): 10 Consistency: now resolved Improves with: rest Worsens with: movement Associated Symptoms: denies: confusion, chest pain, cough, diaphoresis, fever/chills, headaches, loss of appetite, malaise, nausea/vomiting, rash, seizure, shortness of breath, syncope, weakness Treatments Prior to Arrival: none - Related Data Previous Rx's Medication Instructions Recorded Last Taken Type amLODIPine 5 mg PO DAILY #30 tab 12/13/17 06/02/18 08:00 Rx amLODIPine 5 mg PO QHS #90 tab 03/15/18 06/02/18 08:00 Rx Aspirin [Aspirin BABY CHEW TAB] 81 mg PO QDAY #30 tab.chew 06/04/18 Unknown Rx Metoprolol [Lopressor TAB] 25 mg PO DAILY #90 tablet 06/04/18 Unknown Rx hydroCHLOROthiazide [HCTZ] 25 mg PO QDAY #30 tablet 06/04/18 Unknown Rx levoFLOXacin [Levaquin TAB] 500 mg PO QDAY #7 tablet 06/04/18 Unknown Rx lisinopriL [Zestril TAB] 20 mg PO QDAY #30 tablet 06/04/18 Unknown Rx Metoprolol [Lopressor TAB] 50 mg PO DAILY #30 tablet 04/29/20 Unknown Rx Metoprolol Xl [Metoprolol 50 mg PO QDAY #30 tablet 06/18/20 Unknown Rx SUCCINATE ER TAB] amLODIPine 10 mg PO DAILY #30 tab 06/18/20 Unknown Rx Allergies Allergy/AdvReac Type Severity Reaction Status Date / Time No Known Allergies Allergy Verified 04/29/20 10:39 ED Review of Systems ROS: Stated complaint: BLOOD PRESSURE Other details as noted in HPI Constitutional: denies: chills, fever Eyes: denies: eye pain, eye discharge, vision change ENT: denies: ear pain, throat pain Respiratory: denies: cough, shortness of breath, wheezing Cardiovascular: denies: chest pain, palpitations Endocrine: no symptoms reported Gastrointestinal: denies: abdominal pain, nausea, diarrhea Genitourinary: denies: urgency, dysuria Musculoskeletal: denies: back pain, joint swelling, arthralgia Skin: denies: rash, lesions Neurological: as per HPI, headache. denies: weakness, paresthesias Psychiatric: denies: anxiety, depression Hematological/Lymphatic: denies: easy bleeding, easy bruising ED Past Medical Hx - Past Medical History Previous Medical History?: Yes Hx Hypertension: Yes Additional medical history: Obesity, Chronic Back Pain - Surgical History Past Surgical History?: No - Family History Family history: no significant - Social History Smoking Status: Current Every Day Smoker Substance Use Type: None - Medications Home Medications: Home Medications Medication Instructions Recorded Confirmed Last Taken Type amLODIPine 5 mg PO DAILY #30 tab 12/13/17 06/03/18 06/02/18 08:00 Rx amLODIPine 5 mg PO QHS #90 tab 03/15/18 06/03/18 06/02/18 08:00 Rx Aspirin [Aspirin BABY CHEW TAB] 81 mg PO QDAY #30 tab.chew 06/04/18 Unknown Rx Metoprolol [Lopressor TAB] 25 mg PO DAILY #90 tablet 06/04/18 Unknown Rx hydroCHLOROthiazide [HCTZ] 25 mg PO QDAY #30 tablet 02/19/19 Unknown Rx levoFLOXacin [Levaquin TAB] 500 mg PO QDAY #7 tablet 06/04/18 Unknown Rx lisinopriL [Zestril TAB] 20 mg PO QDAY #30 tablet 06/04/18 Unknown Rx Metoprolol [Lopressor TAB] 50 mg PO DAILY #30 tablet 04/29/20 Unknown Rx Metoprolol Xl [Metoprolol 50 mg PO QDAY #30 tablet 06/18/20 Unknown Rx SUCCINATE ER TAB] amLODIPine 10 mg PO DAILY #30 tab 06/18/20 Unknown Rx ED Physical Exam - General Limitations: No Limitations General appearance: alert, in no apparent distress - Head Head exam: Present: atraumatic, normocephalic - Eye Eye exam: Present: normal appearance, PERRL Pupils: Present: normal accommodation - ENT ENT exam: Present: mucous membranes moist - Neck Neck exam: Present: normal inspection - Respiratory Respiratory exam: Present: normal lung sounds bilaterally. Absent: respiratory distress - Cardiovascular Cardiovascular Exam: Present: regular rate, normal rhythm. Absent: systolic murmur, diastolic murmur, rubs, gallop - GI/Abdominal GI/Abdominal exam: Present: soft, normal bowel sounds - Rectal Rectal exam: Present: deferred - Extremities Exam Extremities exam: Present: normal inspection - Back Exam Back exam: Present: normal inspection - Neurological Exam Neurological exam: Present: alert, oriented X3, CN II-XII intact, normal gait. Absent: abnormal gait, motor sensory deficit - Psychiatric Psychiatric exam: Present: normal affect, normal mood - Skin Skin exam: Present: warm, dry, intact, normal color. Absent: rash ED Course Vital Signs 06/18/20 06/18/20 06/18/20 00:24 01:25 01:26 Temperature 98.1 F Pulse Rate 85 Respiratory 20 Rate Blood Pressure 214/150 187/125 187/125 Blood Pressure 185/127 [right arm] O2 Sat by Pulse 97 Oximetry 06/18/20 02:05 Temperature Pulse Rate Respiratory Rate Blood Pressure Blood Pressure 175/120 [right arm] O2 Sat by Pulse Oximetry - Reevaluation(s) Reevaluation #1: Patient is on documentation nurse. Patient has already been given clonidine. We will monitor the blood pressure and adjust as needed. 06/18/20 01:19 Reevaluation #2: Patient blood pressure is improved. Patient's diastolic is 120. I discussed giving the patient another blood pressure medication and the patient states that he would like to leave. I discussed the risk of leaving prior to proper treatment can be rendered. Patient voiced understanding. Patient signed AMA form. Even though the patient is leaving against medical vice, I will give her the patient a formal discharge. Patient states his headache is resolved still. Patient denies headache at this time. I discussed all results and clinical findings with patient. I discussed plan of care with patient. Patient agrees with plan of care. Patient will be discharged home. Patient given discharge instructions. Patient voiced understanding of discharge instructions. 06/18/20 02:17 ED Medical Decision Making - Lab Data Result diagrams: 06/18/20 00:41 - Medical Decision Making Patient is a 49-year-old male who presents emergency room with complaints of headache and elevated blood pressure. Patient ran out of blood pressure medication 3 days ago per patient report regarding his blood pressure improved. Patient's diastolic was elevated and I my plan was to give the patient metoprolol however the patient states he wants to leave. Patient left hospital AGAINST MEDICAL ADVICE. Patient voiced understanding of the risk of leaving the hospital prior to a full treatment could be rendered to the patient. Patient voiced understanding of risk. Patient signed AMA form. Patient's headache responded well to treatment and was resolved. Patient left the hospital asymptomatic. Prior to leaving the hospital, I discussed all the results with patient. Patient's labs were essentially unremarkable. He did patient left AGAINST MEDICAL ADVICE, a formal discharge was still given to the patient and refills of the patient's medication. Patient discharged home. - Differential Diagnosis Hypertension, noncompliance, headache Critical Care Time: Yes Critical care time in (mins) excluding proc time.: 35 Critical care attestation.: If time is entered above; I have spent that time in minutes in the direct care of this critically ill patient, excluding procedure time. Critical Care Time: 35 minutes ED Disposition Clinical Impression: Hypertensive urgency, Uncontrolled hypertension, Essential hypertension Headache Qualifiers: Headache type: unspecified Headache chronicity pattern: acute headache Intractability: not intractable Qualified Code(s): R51.9 - Headache, unspecified Disposition: DC-07 LEFT AGAINST MED ADVICE Is pt being admited?: No Does the pt Need Aspirin: No Condition: Stable Instructions: Hypertension (ED), Hypertension, Adult, [id number], Managing Your Hypertension, DASH Eating Plan, Preventing Hypertension Additional Instructions: Patient to follow-up with primary care in 2 to 3 days. Patient need a low-salt diet. Patient to eat a heart healthy diet. Patient to take blood pressure medi cations continuously. Patient to continue medications. Patient to monitor blood pressure at home. Patient to keep a blood pressure log. Patient to take blood pressure log to all follow-up appointments. Patient to rest. Patient to increase water. Patient to avoid strenuous exercise or heavy lifting until cleared by primary care. Patient to take Tylenol as needed for pain. Patient to take meds as directed. Patient to return to the ER if condition worsens, changes or new symptoms arise. Prescriptions: amLODIPine 10 mg PO DAILY #30 tab Metoprolol Xl [Metoprolol SUCCINATE ER TAB] 50 mg PO QDAY #30 tablet Referrals: PRIMARY CARE [Primary Care Provider] - 2-3 Days Time of Disposition: 02:23
[2020-06-18 01:37] LABS: Alanine Aminotransferase 71 units/L (7-56); Albumin 4.4 g/dL (3.9-5); BUN/Creatinine Ratio 11; Blood Urea Nitrogen 17 mg/dL (9-20); Calcium 9.5 mg/dL (8.4-10.2); Hemolysis Index 7
[2020-06-18 02:06] VITALS: BP 175/120
== END 2020-06-18 02:26 | disposition left against medical advice (07) ==
LOC: ED 23:54
DX: I10 Essential (primary) hypertension (principal); R03.0 Elevated blood-pressure reading, without diagnosis of hypertension; F17.200 Nicotine dependence, unspecified, uncomplicated; Z79.899 Other long term (current) drug therapy
CPT/HCPCS: 36415; 80048; 80053; 99283

== ENCOUNTER 2020-10-13 14:29 | Emergency (ER) | payer SELFPAY ==
[2020-10-13] MEDS ORDERED: hydrALAZINE 20 MG/1 ML INJ IV ONE (18:49)
[2020-10-13] MEDS ORDERED: METOCLOPRAMIDE 10 MG/2 ML INJ IV ONE (18:59)
[2020-10-13] MEDS ORDERED: diphenhydrAMINE 50 MG/ML VIAL IV ONE (18:59)
--- NOTE | 2020-10-13 19:32 | Cat Scan Report ---
NONENHANCED CT SCAN OF THE HEAD: INDICATION / CLINICAL INFORMATION: 49 years Male; headache with HTN x2days. TECHNIQUE: Routine CT head without contrast. All CT scans at this location are performed using CT dos e reduction for ALARA by means of automated exposure control. COMPARISON: None. FINDINGS: BRAIN / INTRACRANIAL CONTENTS: No acute hemorrhage, mass effect, midline shift, hydrocephalus, or acu te, large territorial infarct. No chronic infarct or focal atrophy. Normal brain volume and ventricul ar/sulcal size for age. No significant white matter abnormality. CRANIOCERVICAL JUNCTION: No significant abnormality. ORBITS: No significant abnormality of visualized orbits. SINUSES / MASTOIDS: No significant abnormality of the visualized paranasal sinuses or mastoid air asha ls. ADDITIONAL FINDINGS: None. IMPRESSION: No focal parenchymal lesion Signer Name: Mouna Minor MD Signed: 10/13/2020 7:28 PM Workstation Name: [id number]
--- NOTE | 2020-10-13 19:48 | Emergency Department Report ---
ED Headache HPI - General Chief Complaint: High BP Stated Complaint: HIGH BLOODPRESSURE Time Seen by Provider: 10/13/20 18:48 Source: patient, RN notes reviewed Exam Limitations: no limitations - History of Present Illness Initial Comments: This is a 49-year-old male nontoxic, well nourished in appearance, no acute signs of distress presents to the ED with c/o of acute headache times several days. Patient stated has not been taking his blood pressure medication for the past several days and is also requesting for blood pressure medication refill and baby aspirin as well. Patient stated that he tried [id number] medication for pain which has not resolved or subsided. Patient describes headache as diffuse with level of 8 out of 10. Patient denies thunderclap head ache. Patient denies any radiation of pain. Patient denies any head trauma. Patient denies any visual changes. Patient denies worse headache. Patient denies any numbness, tingling, fever, chills, nausea, vomiting, chest pain, shortness of breath, stiff neck. Patient denies facial drooping or one sided weakness. Patient stated he has not yet follow-up with her primary care doctor. Patient denies any radiation of pain. Patient denies any allergies. Quality: moderate, achy, constant Recent Head Trauma: no recent headache/trauma Associated Symptoms: denies symptoms. denies: confusion, fatigue, facial pain, fever/chills, flushing, loss of consciousness, nausea/vomiting, nasal congestion, nasal drainage, numbness in legs/feet, seizures, sinus infection, stiff neck, vision changes, weakness Allergies/Adverse Reactions: Allergies No Known Allergies Allergy (Verified 10/13/20 15:02) Home Medications: Ambulatory Orders Aspirin [Aspirin BABY CHEW TAB] 81 mg PO QDAY #30 tab.chew 10/13/20 Metoprolol [Lopressor TAB] 50 mg PO DAILY #30 tablet 10/13/20 Sulfamethoxazole/Trimethoprim [Bactrim DS TAB] 1 each PO BID #20 tablet 10/13/20 amLODIPine 10 mg PO DAILY #30 tab 10/13/20 ED Review of Systems ROS: Stated complaint: HIGH BLOODPRESSURE Other details as noted in HPI Comment: All other systems reviewed and negative Constitutional: denies: chills, fever Eyes: denies: eye pain, eye discharge, vision change ENT: denies: ear pain, throat pain Respiratory: denies: cough, shortness of breath, wheezing Cardiovascular: denies: chest pain, palpitations Endocrine: no symptoms reported Gastrointestinal: denies: abdominal pain, nausea, diarrhea Genitourinary: denies: urgency, dysuria Musculoskeletal: denies: back pain, joint swelling, arthralgia Skin: denies: rash, lesions Neurological: headache. denies: weakness, paresthesias Psychiatric: denies: anxiety, depression Hematological/Lymphatic: denies: easy bleeding, easy bruising ED Past Medical Hx - Past Medical History Hx Hypertension: Yes Additional medical history: Obesity, Chronic Back Pain - Social History Smoking Status: Current Every Day Smoker Substance Use Type: None - Medications Home Medications: Home Medications Medication Instructions Recorded Confirmed Last Taken Type Aspirin [Aspirin BABY CHEW TAB] 81 mg PO QDAY #30 tab.chew 10/13/20 Unknown Rx Metoprolol [Lopressor TAB] 50 mg PO DAILY #30 tablet 10/13/20 Unknown Rx Sulfamethoxazole/Trimethoprim 1 each PO BID #20 tablet 10/13/20 Unknown Rx [Bactrim DS TAB] amLODIPine 10 mg PO DAILY #30 tab 10/13/20 Unknown Rx ED Physical Exam - General Limitations: No Limitations General appearance: alert, in no apparent distress - Head Head exam: Present: atraumatic, normocephalic - Eye Eye exam: Present: normal appearance, PERRL, EOMI - Neck Neck exam: Present: normal inspection, full ROM. Absent: lymphadenopathy - Respiratory Respiratory exam: Present: normal lung sounds bilaterally. Absent: respiratory distress, wheezes, rales, rhonchi, stridor, chest wall tenderness, accessory muscle use, decreased breath sounds, prolonged expiratory - Cardiovascular Cardiovascular Exam: Present: regular rate, normal rhythm, normal heart sounds. Absent: bradycardia, tachycardia, irregular rhythm, systolic murmur, diastolic murmur, rubs, gallop - GI/Abdominal GI/Abdominal exam: Present: soft. Absent: distended, tenderness - Extremities Exam Extremities exam: Present: normal inspection, full ROM, normal capillary refill. Absent: tenderness - Back Exam Back exam: Present: normal inspection, full ROM. Absent: tenderness, CVA tenderness (R), CVA tenderness (L), muscle spasm, paraspinal tenderness, vertebral tenderness, rash noted - Neurological Exam Neurological exam: Present: alert, oriented X3, normal gait - Expanded Neurological Exam Expanded Patient oriented to: Present: person, place, time Cranial nerves: EOM's Intact: Normal, Facial Sensation: Normal Cerebellar function: Finger to Nose: Normal Upper motor neuron: Pronator Drift: Normal, Sensory Extinction: Normal Motor strength exam: RUE: 5, LUE: 5, RLE: 5, LLE: 5 Best Eye Response ([place]): (4) open spontaneously Best Motor Response ([place]): (6) obeys commands Best Verbal Response ([place]): (5) oriented [place] Total: 15 - Psychiatric Psychiatric exam: Present: normal affect, normal mood - Skin Skin exam: Present: warm, dry, intact, normal color. Absent: rash ED Course Vital Signs 10/13/20 10/13/20 10/13/20 15:04 18:42 18:44 Temperature 98.7 F 98.6 F 98.6 F Pulse Rate 79 67 67 Respiratory 18 18 20 Rate Blood Pressure 190/121 167/110 Blood Pressure 167/110 [Right] O2 Sat by Pulse 99 100 100 Oximetry 10/13/20 20:57 Temperature 98.6 F Pulse Rate 87 Respiratory 20 Rate Blood Pressure Blood Pressure 145/90 [Right] O2 Sat by Pulse 98 Oximetry - Reevaluation(s) Reevaluation #1: 10/13/20 19:50 Patient is speaking in full sentences with no signs of distress noted. ED Medical Decision Making - Lab Data Result diagrams: 10/13/20 19:13 10/13/20 19:13 - EKG Data 10/13/20 20:51 Normal sinus rhythm at [address] or T wave abnormality. Non-STEMI. Reviewed and signed by . - Radiology Data [facility] [address] [place] [address] Cat Scan Report Signed Patient: ANTIONETTE GERMAN MR#: [id number] : [id number] Acct:[id number] Age/Sex: 49 / M ADM Date: 10/13/20 Loc: ED Attending Dr: Ordering Physician: MOUNA MILLER NP Date of Service: 10/13/20 Procedure(s): CT head/brain wo con Accession Number(s): [id number] cc: MOUNA MILLER NP NONENHANCED CT SCAN OF THE HEAD: INDICATION / CLINICAL INFORMATION: 49 years Male; headache with HTN x2days. TECHNIQUE: Routine CT head without contrast. All CT scans at this location are performed using CT dose reduction for ALARA by means of automated exposure control. COMPARISON: None. FINDINGS: BRAIN / INTRACRANIAL CONTENTS: No acute hemorrhage, mass effect, midline shift, hydrocephalus, or acute, large territorial infarct. No chronic infarct or focal atrophy. Normal brain volume and ventricular/sulcal size for age. No significant white matter abnormality. CRANIOCERVICAL JUNCTION: No significant abnormality. ORBITS: No significant abnormality of visualized orbits. SINUSES / MASTOIDS: No significant abnormality of the visualized paranasal sinuses or mastoid air cells. ADDITIONAL FINDINGS: None. IMPRESSION: No focal parenchymal lesion Signer Name: Mouna Minor MD Signed: 10/13/2020 7:28 PM Workstation Name: [id number] Transcribed By: LEVON Dictated By: Mouna Ch MD Electronically Authenticated By: Mouna Ch MD Signed Date/Time: 10/13/201927 DD/ 24 TD/TT: - Medical Decision Making This is a 49-year-old female that presents with UTI, headache, noncompliant with blood pressure medication and hypertension. Patient is stable and was examined by me. Patient is neurologically stable. Patient is notified of the CT results and laboratory results with no questions noted by the patient. There is no stiff neck or neck pain. Vital signs are stable. Patient is afebrile. Patient received Benadryl, Reglan, and hydralazine which the patient stated that headache has subsided and resolved. Patient also received Rocephin and azithromycin in the ER. Patient be discharged with Bactrim. Blood pressure has decreased prior to discharge. I will refill patient's medication. Educated on hypertension and importance of blood pressure medication as well as keeping a daily diary of blood pressure and presented to primary care doctor. Patient was instructed not to operate any machinery after discharged due to drowsiness of Benadryl. Patient stated that a family member will drive patient home. Patient was referred to Follow-up with a primary care doctor in 3-5 days or if symptoms worsen and continue return to emergency room as soon as possible. At time of discharge, the patient does not seem toxic or ill in appearance. No acute signs of distress noted. Patient agrees to discharge treatment plan of care. No further questions noted by the patient. Critical care attestation.: If time is entered above; I have spent that time in minutes in the direct care of this critically ill patient, excluding procedure time. ED Disposition Clinical Impression: Hx of medication noncompliance UTI (urinary tract infection) Qualifiers: Urinary tract infection type: acute cystitis Hematuria presence: without hematuria Qualified Code(s): N30.00 - Acute cystitis without hematuria HTN (hypertension) Qualifiers: Hypertension type: unspecified Qualified Code(s): I10 - Essential (primary) hypertension Headache Qualifiers: Headache type: unspecified Headache chronicity pattern: acute headache Intractability: not intractable Qualified Code(s): R51.9 - Headache, unspecified Disposition: TO HOME OR SELFCARE Is pt being admited?: No Does the pt Need Aspirin: No Condition: Stable Instructions: Urinary Tract Infection, Adult, Managing Your Hypertension, Hyper tension, Adult, Hypertension (ED) Additional Instructions: Follow-up with a primary care doctor in 3-5 days or if symptoms worsen and continue return to emergency room as soon as possible. Prescriptions: amLODIPine 10 mg PO DAILY #30 tab Aspirin [Aspirin BABY CHEW TAB] 81 mg PO QDAY #30 tab.chew Sulfamethoxazole/Trimethoprim [Bactrim DS TAB] 1 each PO BID #20 tablet Metoprolol [Lopressor TAB] 50 mg PO DAILY #30 tablet Referrals: HALEY TOM MD [Primary Care Provider] - 3-5 Days PAMELA GUTIERREZ MD [Staff Physician] - 3-5 Days Forms: Work/School Release Form(ED) Time of Disposition: 20:51
[2020-10-13 19:50] LABS: Basophils % (Auto) 0.5 % (0.0-1.8); Eosinophils # (Auto) 0.3 K/mm3 (0.0-0.4); Hematocrit 41.2 % (35.5-45.6); Hemoglobin 14.2 gm/dl (11.8-15.2); Lymphocytes # (Auto) 2.8 K/mm3 (1.2-5.4); Lymphocytes % (Auto) 31.2 % (13.4-35.0); Mean Corpuscular HGB Conc 35 % (32-34); Mean Corpuscular Volume 96 fl (84-94); Monocytes # (Auto) 0.7 K/mm3 (0.0-0.8); Monocytes % (Auto) 8.3 % (0.0-7.3); Platelet Count 170 K/mm3 (140-440); Red Blood Count 4.31 M/mm3 (3.65-5.03); Red Cell Distribution Width 13.6 % (13.2-15.2)
[2020-10-13 20:01] LABS: Alanine Aminotransferase 71 units/L (7-56); Albumin 4.2 g/dL (3.9-5); BUN/Creatinine Ratio 14; Blood Urea Nitrogen 19 mg/dL (9-20); Calcium 9.9 mg/dL (8.4-10.2); Hemolysis Index 4
[2020-10-13] MEDS ORDERED: POTASSIUM CHLORIDE ER 20 MEQ TAB PO ONE (20:04)
[2020-10-13 20:36] LABS: Bilirubin,Urine NEG (Negative); Blood,Urine NEG (Negative); Color,Urine Yellow (Yellow); Hyaline Casts,Urine 5 /LPF; Mucus,Urine FEW /HPF
[2020-10-13] MEDS ORDERED: LIDOCAINE-MPF (1%) 10 MG/1 ML VIAL 5 ML INFILTRATI ONE (20:41)
[2020-10-13] MEDS ORDERED: AZITHROMYCIN 250 MG TAB PO ONE (20:42)
[2020-10-13 23:57] VITALS: BP 165/95
--- NOTE | 2020-10-14 09:19 | Electrocardiograph Report ---
[facility] Test Date: 2020-10-13 Test Time: 20:39:49 Pat Name: ANTIONETTE GERMAN Department: Room: Gender: M [employer]: NAI : 1970 Requested By: MOUNA MILLER Order Number: [id number] Reading MD: Harley Nuñez Measurements Intervals [place] Rate: 86 P: 58 MO: 175 QRS: 43 QRSD: 84 T: 219 QT: 371 QTc: 445 Interpretive Statements Sinus rhythm Probable left atrial enlargement Probable LVH with secondary repol abnrm No previous ECG available for comparison Electronically Signed On 10-14-2020 9:18:49 EDT by Harley Nuñez
== END 2020-10-13 21:50 | disposition home or self-care (01) ==
LOC: ED 14:29
DX: N39.0 Urinary tract infection, site not specified (principal); R51.9 Headache, unspecified; I10 Essential (primary) hypertension; G89.29 Other chronic pain; F17.200 Nicotine dependence, unspecified, uncomplicated; E66.8 Other obesity; Z79.899 Other long term (current) drug therapy
CPT/HCPCS: 36415; 70450; 80053; 81001; 85025; 87086; 93005; 96372; 96374; 96375; 99284; J0360; J0696; J1200; J2765